=== PATIENT | male | born 1950 | race Caucasian/White ===

== ENCOUNTER 2016-05-31 16:19 | Emergency (ER) | payer BC, OTHER ==
[~2016-05-31] VITALS: Ht 170.2 cm; Wt 128.1 kg
[~2016-05-31 16:19] MED LIST: ATOR-22 PO; B-CO1CAP3 PO; BIMA0.01 OPB; CITA20TA4 PO; DOXY50CA26 PO; DTRSR4 PO; FLUT0.15 NAE; TADA5TAB11 PO; TAMS0.4C59 PO; TURM1CAP4 PO; UBIQ1CAP8 PO
[2016-05-31 16:35] VITALS: Ht 170.2 cm; Wt 128.1 kg
[2016-05-31 17:48] LABS: BASO % 0.4 %; BASO ABS # 0.03 K/uL (0-0.2); COMPLETE YES; EOS % 3.2 %; HEMATOCRIT 42.2 % (42-52); IG% 0.1 %; LYMPH ABS # 2.25 K/uL (1.2-3.4); MEAN CELL VOLUME 87.6 fL (80-100); MEAN CORPUSCULAR HGB CONC 36.5 g/dl (32-36); MEAN PLATELET VOLUME 9.5 fL (7.4-10.4); MONO % 12.5 %; NEUT % 52.8 %; PLATELET COUNT 220 K/uL (130-400); RED BLOOD COUNT 4.82 M/uL (4.7-6.1); WHITE BLOOD COUNT 7.26 K/uL (4.8-10.8)
[2016-05-31] MEDS ORDERED: MoRPHine SULFATE 4 MG/ML 1 ML CARP\\VIAL IV STA (17:50)
[2016-05-31] MEDS ORDERED: ONDANSETRON INJ 2 MG/ML 2 ML VIAL IV STA (17:50)
[2016-05-31 18:03] LABS: BUN/CREATININE RATIO 23.3 (10-20); CALCIUM 8.5 mg/dl (8.5-10.1); POTASSIUM 3.7 mmol/L (3.5-5.1)
[2016-05-31] MEDS ORDERED: MONT1TAB3 PO (18:46)
--- NOTE | 2016-05-31 19:07 | DIAGNOSTIC IMAGING REPORT ---
CT OF THE HEAD WITHOUT CONTRAST CLINICAL HISTORY: Sharp headache behind right. COMPARISON STUDY: Head CT September 11, 2015. CT DOSE: 1555.67 mGy.cm TECHNIQUE: Helical axial images of the head were obtained without IV contrast. Automated exposure control was utilized for the study. FINDINGS: The orbits CT will be reported separately. No acute intracranial hemorrhage, midline shift or mass effect is present. Ventricular system is stable. Basilar cisterns are patent. There are no extra-axial collections. Adame-white differentiation is maintained. There are no findings to suggest acute dural sinus thrombosis or acute territorial infarct. Visualized portions of the sinuses and mastoid air cells are clear. There are no significant calvarial abnormalities IMPRESSION: No acute intracranial findings. Electronically signed by: Narciso Arnold M.D. 05/31/2016 7:05 PM Dictated Date/Time: 05/31/2016 7:02 PM
--- NOTE | 2016-05-31 19:11 | DIAGNOSTIC IMAGING REPORT ---
CT OF THE ORBITS WITHOUT CONTRAST CLINICAL HISTORY: Right eye pain. TECHNIQUE: Axial images of the orbits were obtained without IV contrast. Coronal reformats were viewed. COMPARISON STUDY: Head CT September 11, 2015. FINDINGS: Mastoid air cells are clear. Globes are intact. There is no orbital mass or hematoma. Evaluation is suboptimal on this unenhanced exam. Deformity of the nasal bones is unchanged since head CT of September 11, 2015. This is chronic. No acute fracture is identified. Orbital floors are intact. There is mild mucosal thickening of the sinuses. There is no evidence for acute sinusitis. No fluid collection is identified. There is no significant infiltration to suggest cellulitis by CT. The superior ophthalmic veins are not dilated. IMPRESSION: 1. No significant abnormality of the orbits identified. 2. Suboptimal evaluation of the orbits given the lack of IV contrast. Electronically signed by: Narciso Arnold M.D. 05/31/2016 7:10 PM Dictated Date/Time: 05/31/2016 7:06 PM
[2016-05-31] MEDS ORDERED: ACETAMINOPHEN 325 MG TAB PO STA (19:30)
[2016-05-31] MEDS ORDERED: PROPARACAINE HCL 0.5% OP SOLN 15 ML BTL OP STA (19:30)
[2016-05-31] MEDS ORDERED: OXYC1TAB3 PO (20:17)
[2016-05-31 20:36] VITALS: BP 132/79; PULSE 57; TEMP 37; O2SAT 95
--- NOTE | 2016-06-02 17:15 | EMERGENCY ROOM VISIT NOTE ---
History Report prepared by Randal: Winifred Whittington Under the Supervision of: Dr. Art Cohen M.D. First contact with patient: 17:12 Chief Complaint: HEADACHE Stated Complaint: SHARP HEADACHE BEHIND RT EYE, EYE PAIN WHEN MOVING History of Present Illness The patient is a 65 year old male who presents to the Emergency Room with complaints of persistent headache starting 3 days [employer]. The patient states that his headache is frontal but that most of his pain is surrounding his eyes. The patient states that there is an increase of pain from a rating of 5/10 to an 8/ 10 when he moves his eye to the left. He states the pain is increased in his headache and causing eye pain. The patient states that his states that his eyelid look swollen compared to baseline. The patient states that when driving home from [place] his headache worsened and he did not know if the sunlight caused his headache to be worse. The patient states that when sitting in the dark with his eyes closed his headache did improve. He states that he takes eye drops prescribed by his loss prevention and safety manager for increased eye pressure. The patient denies taking any blood thinners. The patient denies any fevers, chills, numbness, weakness, blurry vision, SOB, chest pain, or abdominal pain. The patient states he has had a history of migraine in past but states that today his headache does not feel similar. 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 Patient denies blurry vision Review of Systems See HPI for pertinent positives & negatives. A total of 10 systems reviewed and were otherwise negative. Past Medical & Surgical Medical Problems: (1) Allergic rhinitis (2) Anxiety (3) BPH (benign prostatic hypertrophy) (4) Depression (5) Gout (6) H/O migraine (7) HYPERLIPIDEMIA NEC/NOS (8) Obstructive sleep apnea on CPAP (9) Pre-syncope (10) Ureteral calculus, right Surgical Problems: (1) H/O colonoscopy (2) H/O umbilical hernia repair (3) S/p cystourethroscopy (4) S/p repair of ankle fracture (5) S/P repair of hydrocele (6) S/P UPPP (uvulopalatopharyngoplasty) Old medical records were reviewed. Nurse's notes were reviewed and I agree with. Does have a history of increased ocular pressure Family History Diabetes mellitus FH: heart disease FHx: cancer Hypertension Social History Smoking Status: Former Smoker Alcohol Use: occasionally Drug Use: none Marital Status: Occupation Status: employed Current/Historical Medications Scheduled Atorvastatin (Lipitor), 20 MG PO HS B-Complex Vitamins (B Complex), 1 CAP PO DAILY Bimatoprost (Lumigan), 1 DROP OPB HS Citalopram Hydrobromide (Citalopram Hydrobromide), 20 MG PO DAILY Fluticasone Propionate (Nasal) (Flonase Allergy Relief), 2 SPRAYS LUL DAILY Montelukast Sodium (Singulair), 10 MG PO QPM Tadalafil (Cialis), 5 MG PO UD Tamsulosin Hcl (Flomax), 0.4 MG PO DAILY Turmeric (Curcuma Longa) (Turmeric), Unknown Dose PO DAILY Ubiquinol (Ubiquinol), Unknown Dose PO DAILY Scheduled PRN Oxycodone Immediate Rel Tab (Roxicodone Ir), 1 TAB PO Q4H PRN for Severe Pain Allergies Coded Allergies: Aspirin (Verified Allergy, Unknown, FACIAL SWELLING, 05/31/16) Cat Dander (Verified Allergy, Unknown, ., 05/31/16) Uncoded Allergies: HAY FEVER (Allergy, Unknown, ., 08/03/13) Physical Exam Vital Signs Date Time Temp Pulse Resp B/P Pulse Ox O2 Delivery O2 Flow Rate FiO2 05/31/16 20:36 37.0 57 16 132/79 95 05/31/16 20:35 57 16 132/79 95 Room Air 05/31/16 18:50 56 16 130/77 95 Room Air 05/31/16 16:35 37.0 61 18 120/69 94 Room Air Physical Exam General: Non ill appearing older male in no acute distress, breathing comfortably on room air. Normal speech HEENT: Normal cephalic atraumatic. Right eyes appear symmetrical with the left, with minimal sclera injection and redness on the right, no proptosis. Possible mild swelling of the upper lid on the right but no redness or tenderness. Pupils are equal round and reactive to light. Extraocular movements are intact. Oropharynx is pink with moist mucous membranes. No swelling of the mouth lips or tongue. Neck: Supple with a midline trachea. No meningeal signs or stiffness, no JVD or bruits. No Stridor. Chest: Clear to auscultation bilaterally. No wheezes or rhonchi. No increased work of breathing. Heart: regular rate and rhythm. Abdomen: Soft nontender, nondistended without rebound guarding or rigidity. Extremities: No cyanosis clubbing or edema. No calf tenderness or assymetry Spine/Back. Non tender to palpation. No CVA tenderness Skin: Good turgor without rashes. Neurologic exam: Cranial nerves two through 12 are intact. Motor and sensation are intact and symmetrical throughout. No tremor. Medical Decision & Procedures ER Provider Diagnostic Interpretation: CT results as stated below per my review and radiologist interpretation: CT OF THE HEAD WITHOUT CONTRAST CLINICAL HISTORY: Sharp headache behind right. COMPARISON STUDY: Head CT September 11, 2015. CT DOSE: 1555.67 mGy.cm TECHNIQUE: Helical axial images of the head were obtained without IV contrast. Automated exposure control was utilized for the study. FINDINGS: The orbits CT will be reported separately. No acute intracranial hemorrhage, midline shift or mass effect is present. Ventricular system is stable. Basilar cisterns are patent. There are no extra-axial collections. Adame-white differentiation is maintained. There are no findings to suggest acute dural sinus thrombosis or acute territorial infarct. Visualized portions of the sinuses and mastoid air cells are clear. There are no significant calvarial abnormalities IMPRESSION: No acute intracranial findings. Electronically signed by: Narciso Arnold M.D. 05/31/2016 7:05 PM Dictated Date/Time: 05/31/2016 7:[address] OF THE ORBITS WITHOUT CONTRAST CLINICAL HISTORY: Right eye pain. TECHNIQUE: Axial images of the orbits were obtained without IV contrast. Coronal reformats were viewed. COMPARISON STUDY: Head CT September 11, 2015. FINDINGS: Mastoid air cells are clear. Globes are intact. There is no orbital mass or hematoma. Evaluation is suboptimal on this unenhanced exam. Deformity of the nasal bones is unchanged since head CT of September 11, 2015. This is chronic. No acute fracture is identified. Orbital floors are intact. There is mild mucosal thickening of the sinuses. There is no evidence for acute sinusitis. No fluid collection is identified. There is no significant infiltration to suggest cellulitis by CT. The superior ophthalmic veins are not dilated. IMPRESSION: 1. No significant abnormality of the orbits identified. 2. Suboptimal evaluation of the orbits given the lack of IV contrast. Electronically signed by: Narciso Arnold M.D. 05/31/2016 7:10 PM Dictated Date/Time: 05/31/2016 7:06 PM Laboratory Results 05/31/16 17:40 Red Blood Count 4.82, Mean Corpuscular Volume 87.6, Mean Corpuscular Hemoglobin 32.0, Mean Corpuscular Hemoglobin Concent 36.5, Mean Platelet Volume 9.5, Neutrophils (%) (Auto) 52.8, Lymphocytes (%) (Auto) 31.0, Monocytes (%) (Auto) 12.5, Eosinophils (%) (Auto) 3.2, Basophils (%) (Auto) 0.4, Neutrophils # (Auto ) 3.83, Lymphocytes # (Auto) 2.25, Monocytes # (Auto) 0.91, Eosinophils # (Auto ) 0.23, Basophils # (Auto) 0.03 05/31/16 17:40 Test 05/31/16 17:40 White Blood Count 7.26 K/uL (4.8-10.8) Red Blood Count 4.82 M/uL (4.7-6.1) Hemoglobin 15.4 g/dL (14.0-18.0) Hematocrit 42.2 % (42-52) Mean Corpuscular Volume 87.6 fL (80-100) Mean Corpuscular Hemoglobin 32.0 pg (25-34) Mean Corpuscular Hemoglobin Concent 36.5 g/dl (32-36) Platelet Count 220 K/uL (130-400) Mean Platelet Volume 9.5 fL (7.4-10.4) Neutrophils (%) (Auto) 52.8 % Lymphocytes (%) (Auto) 31.0 % Monocytes (%) (Auto) 12.5 % Eosinophils (%) (Auto) 3.2 % Basophils (%) (Auto) 0.4 % Neutrophils # (Auto) 3.83 K/uL (1.4-6.5) Lymphocytes # (Auto) 2.25 K/uL (1.2-3.4) Monocytes # (Auto) 0.91 K/uL (0.11-0.59) Eosinophils # (Auto) 0.23 K/uL (0-0.5) Basophils # (Auto) 0.03 K/uL (0-0.2) RDW Standard Deviation 41.8 fL (36.4-46.3) RDW Coefficient of Variation 13.1 % (11.5-14.5) Immature Granulocyte % (Auto) 0.1 % Immature Granulocyte # (Auto) 0.01 K/uL (0.00-0.02) Erythrocyte Sedimentation Rate 9 mm/hr (0-14) Anion Gap 7.0 mmol/L (3-11) Est Creatinine Clear Calc Drug Dose 96.0 ml/min Estimated GFR () 91.8 Estimated GFR (Non- 79.2 BUN/Creatinine Ratio 23.3 (10-20) Calcium Level 8.5 mg/dl (8.5-10.1) Laboratory studies as stated above per my review. Medications Administered Medications (Trade) Dose Ordered Sig/Jose Route Start Time Stop Time Status Last Admin Dose Admin Morphine Sulfate (MoRPHine SULFATE INJ) 4 mg NOW STAT IV 05/31/16 17:50 05/31/16 17:51 DC 05/31/16 18:00 4 MG Ondansetron HCl (Zofran Inj) 4 mg NOW STAT IV 05/31/16 17:50 05/31/16 17:51 DC 05/31/16 17:59 4 MG Acetaminophen (Tylenol Tab) 650 mg NOW STAT PO 05/31/16 19:30 05/31/16 19:32 DC 05/31/16 19:44 650 MG Procedure Slit Lamp Examination Indication:right eye pain The right eye was prepped with topical proparacaine. Slit lamp examination was performed in the standard fashion. Cornea appeared without lesions. Anterior chamber no hyphema. Scleral injection was present on right mostly laterally. No discharge present. Fluorescein examination performed and revealed no lesions. No foreign bodies noted. Negative Noemí sign. The patient tolerated the procedure well without complication. ED Course 1713: Past medical records reviewed. The patient was evaluated in room A9B, and a complete history and physical examination were performed. 1747: I reevaluated the patient and he was complaining of more pain. 1749: Ordered Zofran Inj 4 mg IV, Morphine sulfate 4 mg IV. 1814: I examined the patient's eyes using the puff tonometer and he's results were an average of 17 in the right eye and 15 in the left. 1928: I reevaluated the patient and he states he is feeling better with a minimal headache. 1929: Ordered Proparacaine HCl 2 drop OP, Tylenol Tab 650 mg PO. 1953: I performed slit eye exam on the patient. 2007: I discussed the case with Dr. Lisa [employer]. He said the patient can be seen in the office tomorrow. 2022: Upon reevaluation, the patient is resting comfortably. I discussed the results and treatment plan with him. He verbalized agreement of the treatment plan. The patient was discharged home. Medical Decision Differentials include, but are not limited to; glaucoma, intracanal process, inflammatory process, electrolyte or metabolic abnormality. This patient comes in as described above. He has sharp pain behind his right eye. He does have a history of what sounds a mild glaucoma. On exam, his eyes look well with exception of some mild redness of the right sclera and possible mild right eyelid swelling. He has a normal neurologic exam and is nontoxic and [id number] and he has no meningeal signs or stiffness. He has nothing to suggest infection or sepsis. IV access was established and multiple blood tests was obtained as well as CAT scan imaging. The CAT scan of his head and orbit are unremarkable. He has no white count or fever to suggest infection. A sedimentation rate is not elevated and therefore temporal arteritis is extremely unlikely. He was given IV morphine and IV Zofran is feeling much better. He also received by mouth Tylenol. I did check is ocular pressures 3 different times using our puff tonometer. They were not elevated and are 17 and 15. I looked his eye with the slit lamp. There are no anterior chamber abnormalities. There is no corneal abrasions or lesions or hyphema. His visual acuity is not abnormal. He has normal neurologic exam and his symptoms do not suggest an acute intracranial process, stroke, or aneurysm at this point .He is feeling better and would like to go home. I did discuss case Dr. Pires, the on-call loss prevention and safety manager. He said they can see him in the office tomorrow. It is possible this could be a scleritis or episcleritis. He did not have any further recommendations except for pain management at this point. The patient was given a home pack of OxyIR as well as prescription. He was warned that it could make him drowsy and do not take before drinking, driving, working. He is to return if: increasing pain, worsening headaches, change in vision, numbness of his, any new problems or concerns. Patient and his were happy with the plan and he was discharged to home. Consults Time Called: 2004 Consulting Physician: Dr. Lisa loss prevention and safety manager Returned Call: 2007 I discussed the case with Dr. Lisa [employer]. He said the patient can be seen in the office tomorrow. Impression Primary Impression: Pain, eye, right Additional Impression: Headache Scribe Attestation The scribe's documentation has been prepared under my direction and personally reviewed by me in its entirety. I confirm that the note above accurately reflects all work, treatment, procedures, and medical decision making performed by me. Departure Information Dispostion Home / Self-Care Prescriptions Oxycodone Immediate Rel Tab (ROXICODONE IR) 5 Mg Tab 1 TAB PO Q4H Y for Severe Pain, #14 TAB Prov: Art Cohen M.D. 05/31/16 Referrals Emerson Menendez MD (PCP) Forms HOME CARE DOCUMENTATION FORM, IMPORTANT VISIT INFORMATION Patient Instructions My [facility] Additional Instructions Rest. Drink plenty of fluids. For more severe pain, may use OxyIR 5 mg, one to 2 pills every 4-6 hours as needed. Follow-up with Dr. Mata tomorrow, they can check in the office Return if: Increasing pain, worsening of symptoms, fever or chills, any new problems or concerns Problem Qualifiers
== END 2016-05-31 20:37 | disposition home or self-care (01) ==
LOC: C.EDB 16:20 → C.EDA 20:37
DX: R51 Headache (principal); H57.11 Ocular pain, right eye; F41.9 Anxiety disorder, unspecified; N40.0 Benign prostatic hyperplasia without lower urinary tract symptoms; E78.5 Hyperlipidemia, unspecified; G47.33 Obstructive sleep apnea (adult) (pediatric); Z87.891 Personal history of nicotine dependence

== ENCOUNTER → 2016-12-31 | Outpatient (CLI) | payer BC ==
[~2016-12-31] MED LIST changes: -DOXY50CA26 PO; -DTRSR4 PO; +MONT1TAB3 PO; +OPTIRAY 320 IV PRN
--- NOTE | 2016-12-31 18:03 | DIAGNOSTIC IMAGING REPORT ---
ABDOMEN AND PELVIS CT WITH IV AND ORAL CONTRAST CT DOSE: 973.81 mGycm HISTORY: D72.829 hx diverticulitis, leukocytosis , flank pain TECHNIQUE: Multiaxial CT images of the abdomen and pelvis were performed following the use of intravenous and oral contrast. A dose lowering technique was utilized adhering to the principles of ALARA. COMPARISON STUDY: Abdomen and pelvis CT 8 07/07/2013. FINDINGS: Mild dependent changes/scarring at the lung bases. No fractures within the visualized osseous structures. Moderate degenerative disease within the lumbar spine. No hepatic or splenic masses. The adrenal glands, gallbladder, and pancreas are unremarkable. No renal or ureteral stones. No hydronephrosis. No retroperitoneal lymphadenopathy. Normal bladder. The prostate remains mildly enlarged. Stable asymmetric enlargement of the left seminal vesicle. Colonic diverticulosis. No bowel wall thickening or obstruction. Normal appendix. IMPRESSION: 1. No bowel wall thickening or obstruction. 2. Normal appendix. 3. No renal stones. No hydronephrosis. Electronically signed by: Mitch Armstrong M.D. 12/31/2016 6:01 PM Dictated Date/Time: 12/31/2016 5:54 PM
== END | disposition home or self-care (01) ==
LOC: C.CTS 15:05
PROVIDERS: ATTEND Nurse Practitioner
DX: D72.829 Elevated white blood cell count, unspecified (principal)

== ENCOUNTER 2021-12-27 10:39 | Observation (INO) ==
--- NOTE | 2021-12-27 11:13 | XRay Report ---
XR chest 1V portable HISTORY: 71 years-old Male Chest Pain acute chest pain COMPARISON: Chest radiograph 09/11/2015 TECHNIQUE: Portable AP view of the chest FINDINGS: Cardiac mediastinal and hilar silhouettes are unchanged. No pneumothorax, pleural effusion, airspace consolidation or overt pulmonary edema. Mild subsegmental bibasilar atelectasis. Degenerative changes of the shoulders and spine. Mild mid thoracic dextroscoliosis. IMPRESSION: No acute process. ACT 112: Negative or not required by law. The above report was generated using voice recognition software. It may contain grammatical, syntax o r spelling errors. Electronically signed by: Aubrey Tucker M.D. 12/27/2021 11:12 AM
[2021-12-27 11:15] LABS: Basophils # (auto) 0.05 K/uL (0-0.2); Basophils % (auto) 0.6 %; Eosinophils # (auto) 0.17 K/uL (0-0.50); Eosinophils % (auto) 1.9 %; Hematocrit (blood only) 44.9 % (40.1-51.0); Hemoglobin 15.9 g/dl (14.0-18.0); Immature Granulocytes # (auto) 0.03 K/uL (0.00-0.02); Immature Granulocytes % (auto) 0.3 %; Lymphocytes # (auto) 2.38 K/uL (1.2-3.4); Lymphocytes % (auto) 26.2 %; Mean Corpuscular Hemoglobin 32.6 pg (25.0-34.0); Mean Corpuscular Hgb Conc 35.4 g/dL (32.0-36.0); Mean Platelet Volume 9.8 fL (9.4-12.4); Monocytes # (auto) 0.73 K/uL (0.24-0.82); Neutrophils # (auto) 5.73 K/uL (1.4-6.5); Platelet Count 233 K/uL (130-400); RDW Coefficient of Variation 13.6 % (11.5-14.5); RDW Standard Deviation 46.2 fL (36.4-46.3); Red Blood Count 4.88 M/uL (4.63-6.08); White Blood Count 9.09 K/ul (4.8-10.8)
[2021-12-27 11:34] LABS: D Dimer 330 ug/L FEU (0-500); Partial Thromboplastin Ratio 0.9; Partial Thromboplastin Time 25.9 Seconds (21.0-31.0); Prothrombin Time 10.8 Seconds (9.0-12.0)
--- NOTE | 2021-12-27 11:40 | Emergency Department Note ---
History of Present Illness General Chief Complaint: Chest Pain Stated Complaint: L SIDE RIB CAGE PAIN/CHEST PAIN Time Seen by Provider: 12/27/21 10:51 History of Present Illness Provider Complaint: chest pain Onset (ago): day(s) 2 Duration: intermittent and now resolved Onset: during exertion Pain Location: substernal and left chest Pain Radiation: none Severity: moderate Maximum Pain Intensity: 7 Current Pain Intensity: 7 Quality: + aching, + heaviness and + dull Relieved By: + rest Exacerbated By: + exertion and + inspiration Context: no recent illness, no recent surgery, no recent travel, no trauma/inju ry, no new medications or no history of DVT/PE Associated symptoms: no vomiting, no dyspnea, no syncope, no palpitations, no cough or no leg swelling Home Medications Medication Instructions Recorded Confirmed Type allopurinol 300 mg tablet 300 mg PO HS 12/20/20 12/27/21 History atorvastatin 40 mg tablet 40 mg PO PM 12/20/20 12/27/21 History losartan 25 mg tablet 25 mg PO HS 12/20/20 12/27/21 History metformin 500 mg tablet,extended 500 mg PO HS 12/20/20 12/27/21 History release 24 hr tamsulosin 0.4 mg capsule (Flomax) 0.4 mg PO HS 12/20/20 12/27/21 History travoprost 0.004 % eye drops 1 drp OPB HS 12/20/20 12/27/21 History (Travatan Z) turmeric 400 mg capsule 400 mg PO HS 12/20/20 12/27/21 History lifitegrast 5 % eye drops in a 1 drp OPB BID 12/27/20 12/27/21 History dropperette (Xiidra) multivitamin (Daily Multi-Vitamin 1 tab PO QAM 12/27/20 12/27/21 History tablet) finasteride 5 mg tablet 5 mg PO HS 12/27/21 12/27/21 History levothyroxine 50 mcg tablet 50 mcg PO DAILY 12/27/21 12/27/21 History vitamin B complex 1 tab PO DAILY 12/27/21 12/27/21 History Allergies Allergy/AdvReac Type Severity Reaction Status Date / Time aspirin Allergy Severe Facial Verified 12/27/21 11:26 swelling cat dander Allergy Intermediate Eye itching Verified 12/27/21 11:26 HAY FEVER Allergy Intermediate Sneezing Uncoded 12/27/21 11:26 Past Med/Surg History Medical History BPH (benign prostatic hypertrophy) CAD (coronary artery disease) Coronary calcifications noted on CT scan- evaluated by cardio- negative stress test- statin increased- started on Losartan for risk factor modification DDD (degenerative disc disease) Depression Diabetes mellitus, type 2 Dyslipidemia Gout History of COVID-19 Dx 01/2020 > resolved Sleep apnea CPAP SVT (supraventricular tachycardia) Single episode 06/2020 on stress test > converted to SR on own post stress (cardio aware) Surgical History H/O colonoscopy H/O umbilical hernia repair History of ankle surgery S/P repair of hydrocele S/P UPPP (uvulopalatopharyngoplasty) Social History Smoking Status: Former smoker Tobacco Type: Cigarettes Second Hand Exposure: No; Hx Alcohol Use: Yes Hx Substance Use: No Preferred Language: Croatian Communication Ability: Effective 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 Beliefs That Will Affect Care: None marital status: Current Living Situation: Spouse current occupational status: employed Feels Safe at Home: Yes Review of Systems A total of 10 systems reviewed and were otherwise negative Physical Exam Vital Signs Vital Signs - 24 hr 12/27/21 10:45 12/27/21 11:01 12/27/21 10:53 Temperature 36.3 C L Temperature Source Temporal Artery Scan Pulse Rate 79 64 Pulse Rate [Apical] 67 Pulse Rate from SpO2 Sensor Respiratory Rate 20 20 23 Respiratory Effort / Characteristics Non-Labored Spontaneous Non-Labored Spontaneous Respiratory Depth Normal Normal Respiratory Pattern Regular Regular Blood Pressure 111/70 Blood Pressure [Right Arm] 135/79 Blood Pressure Mean 83 Blood Pressure Mean [Right Arm] 97 Blood Pressure Position [Right Arm] Sitting Pulse Oximetry 95 96 Oxygen Delivery Method Room Air Room Air Sepsis Recent Fever Within 48 Hours No Sepsis New/Unexplained Change in Mental Status No Sepsis Action Taken by Nursing No Action Required 12/27/21 10:59 12/27/21 10:59 12/27/21 11:00 Temperature Temperature Source Pulse Rate 66 61 Pulse Rate [Apical] Pulse Rate from SpO2 Sensor 75 64 Respiratory Rate 24 19 Respiratory Effort / Characteristics Respiratory Depth Respiratory Pattern Blood Pressure 135/79 Blood Pressure [Right Arm] Blood Pressure Mean 97 Blood Pressure Mean [Right Arm] Blood Pressure Position [Right Arm] Pulse Oximetry 91 95 Oxygen Delivery Method Sepsis Recent Fever Within 48 Hours Sepsis New/Unexplained Change in Mental Status Sepsis Action Taken by Nursing 12/27/21 11:10 12/27/21 11:20 12/27/21 11:30 Temperature Temperature Source Pulse Rate 66 66 66 Pulse Rate [Apical] Pulse Rate from SpO2 Sensor 66 66 65 Respiratory Rate 22 20 Respiratory Effort / Characteristics Respiratory Depth Respiratory Pattern Blood Pressure Blood Pressure [Right Arm] Blood Pressure Mean Blood Pressure Mean [Right Arm] Blood Pressure Position [Right Arm] Pulse Oximetry 95 95 95 Oxygen Delivery Method Sepsis Recent Fever Within 48 Hours Sepsis New/Unexplained Change in Mental Status Sepsis Action Taken by Nursing 12/27/21 11:40 12/27/21 11:50 12/27/21 12:00 Temperature Temperature Source Pulse Rate 68 67 70 Pulse Rate [Apical] Pulse Rate from SpO2 Sensor 70 68 71 Respiratory Rate 19 23 20 Respiratory Effort / Characteristics Respiratory Depth Respiratory Pattern Blood Pressure Blood Pressure [Right Arm] Blood Pressure Mean Blood Pressure Mean [Right Arm] Blood Pressure Position [Right Arm] Pulse Oximetry 95 95 96 Oxygen Delivery Method Sepsis Recent Fever Within 48 Hours Sepsis New/Unexplained Change in Mental Status Sepsis Action Taken by Nursing 12/27/21 12:10 12/27/21 12:20 12/27/21 12:30 Temperature Temperature Source Pulse Rate 66 66 65 Pulse Rate [Apical] Pulse Rate from SpO2 Sensor 63 65 64 Respiratory Rate 20 22 18 Respiratory Effort / Characteristics Respiratory Depth Respiratory Pattern Blood Pressure Blood Pressure [Right Arm] Blood Pressure Mean Blood Pressure Mean [Right Arm] Blood Pressure Position [Right Arm] Pulse Oximetry 95 96 95 Oxygen Delivery Method Sepsis Recent Fever Within 48 Hours Sepsis New/Unexplained Change in Mental Status Sepsis Action Taken by Nursing 12/27/21 12:40 12/27/21 12:50 12/27/21 13:00 Temperature Temperature Source Pulse Rate 65 69 59 L Pulse Rate [Apical] Pulse Rate from SpO2 Sensor 63 68 61 Respiratory Rate 23 18 Respiratory Effort / Characteristics Respiratory Depth Respiratory Pattern Blood Pressure Blood Pressure [Right Arm] Blood Pressure Mean Blood Pressure Mean [Right Arm] Blood Pressure Position [Right Arm] Pulse Oximetry 96 96 96 Oxygen Delivery Method Sepsis Recent Fever Within 48 Hours Sepsis New/Unexplained Change in Mental Status Sepsis Action Taken by Nursing 12/27/21 13:10 Temperature Temperature Source Pulse Rate 61 Pulse Rate [Apical] Pulse Rate from SpO2 Sensor 62 Respiratory Rate 20 Respiratory Effort / Characteristics Respiratory Depth Respiratory Pattern Blood Pressure Blood Pressure [Right Arm] Blood Pressure Mean Blood Pressure Mean [Right Arm] Blood Pressure Position [Right Arm] Pulse Oximetry 97 Oxygen Delivery Method Sepsis Recent Fever Within 48 Hours Sepsis New/Unexplained Change in Mental Status Sepsis Action Taken by Nursing Physical Exam GENERAL: He is oriented to person, place, and time. He appears well-developed and well-nourished. He does not appear distressed. HENT: Exam performed. - Head: Normocephalic and atraumatic. - Right Ear: External ear normal. No mastoid tenderness. - Left Ear: External ear normal. No mastoid tenderness. - Mouth/Throat: The oropharynx is clear and moist. No trismus in the jaw. No dental abscesses or uvula swelling. No oropharyngeal exudate or tonsillar abscesses. EYES: Conjunctivae and EOM are normal. Pupils are equal, round, and reactive to light. Right eye exhibits no discharge. Left eye exhibits no discharge. No scleral icterus. NECK: Normal range of motion. Neck supple. No JVD present. No spinous process t enderness present. No carotid bruit present. No rigidity. No tracheal deviation and normal range of motion present. No Brudzinski's sign and no Kernig's sign noted. CV: Normal rate, regular rhythm, normal heart sounds and intact distal pulses. There is no peripheral edema. Palpable radial pulses bue. PULM/CHEST: Effort normal and breath sounds normal. No respiratory distress. No stridor. He has no wheezes. He has no rales. - Chest Wall: He exhibits no tenderness. ABD: The abdomen is soft. Bowel sounds are normal. He has no distension. No mass is present. There is no tenderness. There is no rebound, no guarding, no Velásquez's sign and no tenderness at McBurney's point. Rovsig negative. MUSC/SKEL: Normal range of motion. There is no peripheral edema, tenderness or deformity. LYMPH: No cervical adenopathy. NEURO: He is alert and oriented to person, place, and time. He has normal strength. No cranial nerve deficit or sensory deficit. Coordination and gait normal. GCS eye subscore is 4. GCS verbal subscore is 5. GCS motor subscore is 6. Cerebellar tests wnl. SKIN: Skin is warm and dry. He is not diaphoretic. PSYCH: He has a normal mood and affect. Behavior is normal. Judgment and thought content normal. Course Course 1051: The patient was evaluated in room C1. A complete history and physical exam was performed Cardiac monitoring: An order was placed for continuous cardiac monitoring. The monitor shows a rate of 60 with sinus rhythm 1230: Vital signs stable. Labs and imaging within normal limits. Patient has a moderate to high heart score. [facility] Medical Decision Making Laboratory Data Result diagrams: 12/27/21 10:59 12/27/21 10:59 Labs: Lab Results 12/27/21 12/27/21 12/27/21 Range/Units 10:59 10:59 10:59 WBC 9.09 (4.8-10.8) K/ul RBC 4.88 (4.63-6.08) M/uL Hgb 15.9 (14.0-18.0) g/dl Hct 44.9 (40.1-51.0) % MCV 92.0 (80.0-100.0) fL MCH 32.6 (25.0-34.0) pg MCHC 35.4 (32.0-36.0) g/dL RDW Std Deviation 46.2 (36.4-46.3) fL RDW Coeff of Dk 13.6 (11.5-14.5) % Plt Count 233 (130-400) K/uL MPV 9.8 (9.4-12.4) fL Immature Gran % (Auto) 0.3 % Neut % (Auto) 63.0 % Lymph % (Auto) 26.2 % [place] % (Auto) 8.0 % Eos % (Auto) 1.9 % Baso % (Auto) 0.6 % Neut # (Auto) 5.73 (1.4-6.5) K/uL Lymph # (Auto) 2.38 (1.2-3.4) K/uL [place] # (Auto) 0.73 (0.24-0.82) K/uL Eos # (Auto) 0.17 (0-0.50) K/uL Baso # (Auto) 0.05 (0-0.2) K/uL Immature Gran # (Auto) 0.03 H (0.00-0.02) K/uL PT 10.8 (9.0-12.0) Seconds INR 1.0 (0.9-1.1) APTT 25.9 (21.0-31.0) Seconds PTT Ratio 0.9 D-Dimer 330 (0-500) ug/L FEU Sodium 138 (136-145) mmol/L Potassium 4.2 (3.5-5.1) mmol/L Chloride 105 (98-107) mmol/L Carbon Dioxide 25 (21-32) mmol/L Anion Gap 8 (3-11) BUN 20 (6-23) mg/dl Creatinine 1.08 (0.6-1.4) mg/dl Est Cr Clr Drug Dosing 79.6 ml/min Est GFR ( Amer) 80.2 ml/min Est GFR (Non-Af Amer) 69.2 ml/min BUN/Creatinine Ratio 18.5 (10-20) Glucose 143 H (70-99(Fasting)) mg/dl Calcium 9.1 (8.5-10.1) mg/dl Troponin I High Sens 5.1 (0-20) pg/ml Lipase 42 (11-82) U/L SARS-CoV-2, RNA, NAAT (NEGATIVE) 12/27/21 Range/Units 12:33 WBC (4.8-10.8) K/ul RBC (4.63-6.08) M/uL Hgb (14.0-18.0) g/dl Hct (40.1-51.0) % MCV (80.0-100.0) fL MCH (25.0-34.0) pg MCHC (32.0-36.0) g/dL RDW Std Deviation (36.4-46.3) fL RDW Coeff of Dk (11.5-14.5) % Plt Count (130-400) K/uL MPV (9.4-12.4) fL Immature Gran % (Auto) % Neut % (Auto) % Lymph % (Auto) % [place] % (Auto) % Eos % (Auto) % Baso % (Auto) % Neut # (Auto) (1.4-6.5) K/uL Lymph # (Auto) (1.2-3.4) K/uL [place] # (Auto) (0.24-0.82) K/uL Eos # (Auto) (0-0.50) K/uL Baso # (Auto) (0-0.2) K/uL Immature Gran # (Auto) (0.00-0.02) K/uL PT (9.0-12.0) Seconds INR (0.9-1.1) APTT (21.0-31.0) Seconds PTT Ratio D-Dimer (0-500) ug/L FEU Sodium (136-145) mmol/L Potassium (3.5-5.1) mmol/L Chloride (98-107) mmol/L Carbon Dioxide (21-32) mmol/L Anion Gap (3-11) BUN (6-23) mg/dl Creatinine (0.6-1.4) mg/dl Est Cr Clr Drug Dosing ml/min Est GFR ( Amer) ml/min Est GFR (Non-Af Amer) ml/min BUN/Creatinine Ratio (10-20) Glucose (70-99(Fasting)) mg/dl Calcium (8.5-10.1) mg/dl Troponin I High Sens (0-20) pg/ml Lipase (11-82) U/L SARS-CoV-2, RNA, NAAT NEGATIVE (NEGATIVE) Imaging Data Chest x-ray: Radiologist's impression: Chest X-Ray 12/27/21 10:51 XR chest 1V portable HISTORY: 71 years-old Male Chest Pain acute chest pain COMPARISON: Chest radiograph 09/11/2015 TECHNIQUE: Portable AP view of the chest FINDINGS: Cardiac mediastinal and hilar silhouettes are unchanged. No pneumothorax, pleural effusion, airspace consolidation or overt pulmonary edema. Mild subsegmental bibasilar atelectasis. Degenerative changes of the shoulders and spine. Mild mid thoracic dextroscoliosis. IMPRESSION: No acute process. ACT 112: Negative or not required by law. The above report was generated using voice recognition software. It may contain grammatical, syntax or spelling errors. Electronically signed by: Aubrey Tucker M.D. 12/27/2021 11:12 AM ECG Data Indication: chest pain Rate (beats per minute): 61 Rhythm: normal sinus Findings: no ST depression, no ST elevation or no prolonged QT MDM Narrative Vital signs stable. Labs and imaging within normal limits. Patient has a moderate to high heart score. Patient will be admitted to the [facility] hospitalist team for rule out ACS Impression & Plan Chest pain Discharge Plan Visit Data Chief Complaint: Chest Pain Stated Complaint: L SIDE RIB CAGE PAIN/CHEST PAIN ED Provider: Devon Rg Discharge Problem: Chest pain Patient Disposition: Being Evaluated by Hospitalist Forms Stand Alone Forms: [facility] Prescriptions Prescriptions: No Action multivitamin [Daily Multi-Vitamin] Tablet 1 tab PO QAM Xiidra 5 % dropperette 1 drp OPB BID atorvastatin 40 mg Tablet 40 mg PO PM travoprost [Travatan Z] 0.004 % Drops 1 drp OPB HS tamsulosin [Flomax] 0.4 mg Capsule 0.4 mg PO HS losartan 25 mg Tablet 25 mg PO HS allopurinol 300 mg Tablet 300 mg PO HS metformin 500 mg Tablet Extended Release 24 Hr 500 mg PO HS turmeric 400 mg Capsule 400 mg PO HS levothyroxine 50 mcg tablet 50 mcg PO DAILY finasteride 5 mg tablet 5 mg PO HS vitamin B complex Tablet 1 tab PO DAILY Referrals Referrals: Emerson Menendez MD [Primary Care Provider] -
[2021-12-27 11:51] LABS: BUN Creatinine Ratio 18.5 (10-20); Calcium 9.1 mg/dl (8.5-10.1); Creatinine Clr Calc Pharmacy 79.6 ml/min; Est GFR (African American) 80.2 ml/min; Est GFR (Non-African American) 69.2 ml/min; Potassium 4.2 mmol/L (3.5-5.1)
[2021-12-27 11:53] LABS: Troponin I High Sensitivity 5.1 pg/ml (0-20)
--- NOTE | 2021-12-27 14:19 | History & Physical Report ---
Date of Service December 27, 2021 Assessment & Plan (1) Chest pain: Plan 71 yo M with PMH of type 2 DM, GOLDY on CPAP, hypothyroidism, dyslipidemia presented to the ED Chest pain occurs with exertion and deep breathing Due to the exertional chest pain, and his significant history we need to r/o ACS Initial troponin negative and EKG showed no acute ischemic changes CXR showed no acute finding Pt had echo done recently on 10/28/21- showed aortic root is mildly enlarged 4.1 cm. The ascending aorta is mildly enlarged 4.1 cm. LV wall thickness is mildly increased. LV ejection fraction 55 to 59% No aspirin given because pt has an allergy with ASA case discussed with cardiology If patient chest pain reoccurs, will start on plavix and heparin Will trend troponin Will get a resting echo, repeat EKG in am and check Lipid panel Continue Statin for now NPO after midnight Will monitor closely in tele Diabetes type 2 Most recent hba1c 6.3- Controlled Will hold PO metformin Will repeat Hba1c in am Will add insulin sliding scale during the hospital course GOLDY Continue Cpap at night HTN BP stable Continue Losartan 25mg daily BPH Continue Proscar and flomax Hypothyroidism Will check TSH Continue Levothyroxine DVT px on Heparin subq Code status full code History of Present Illness Chief Complaint: Chest pain Primary Care Provider: Emerson Menendez MD 71 yo M with PMH of type 2 DM, GOLDY on CPAP, hypothyroidism, dyslipidemia presented to the ED with Chest pain. Pt said that for the last few days he has been having chest pain with exertion, then improves at rest. He said that chest pain also occurs with deep breathing. He said that on he was playing golf with his son when pain got worst. Pain located below his left breast area, non radiating, throbbing, vary in intensity dependent on his activities. said that he has been feeling fatigue and tired lately. He had some mild chest discomfort when I pushed on the area below his breast. Denies any fever, SOB, dizziness, nausea, diarrhea and palpitation. Currently resting comfortable in bed with at bedside watching the [employer] football game. Allergies Allergy/AdvReac Type Severity Reaction Status Date / Time aspirin Allergy Severe Facial Verified 12/27/21 11:26 swelling cat dander Allergy Intermediate Eye itching Verified 12/27/21 11:26 HAY FEVER Allergy Intermediate Sneezing Uncoded 12/27/21 11:26 Home Medications Medication Instructions Recorded Confirmed Type allopurinol 300 mg tablet 300 mg PO HS 12/20/20 12/27/21 History atorvastatin 40 mg tablet 40 mg PO PM 12/20/20 12/27/21 History losartan 25 mg tablet 25 mg PO HS 12/20/20 12/27/21 History metformin 500 mg tablet,extended 500 mg PO HS 12/20/20 12/27/21 History release 24 hr tamsulosin 0.4 mg capsule (Flomax) 0.4 mg PO HS 12/20/20 12/27/21 History travoprost 0.004 % eye drops 1 drp OPB HS 12/20/20 12/27/21 History (Travatan Z) turmeric 400 mg capsule 400 mg PO HS 12/20/20 12/27/21 History lifitegrast 5 % eye drops in a 1 drp OPB BID 12/27/20 12/27/21 History dropperette (Xiidra) multivitamin (Daily Multi-Vitamin 1 tab PO QAM 12/27/20 12/27/21 History tablet) finasteride 5 mg tablet 5 mg PO HS 12/27/21 12/27/21 History levothyroxine 50 mcg tablet 50 mcg PO DAILY 12/27/21 12/27/21 History vitamin B complex 1 tab PO DAILY 12/27/21 12/27/21 History Past Med/Surg History Medical History BPH (benign prostatic hypertrophy) CAD (coronary artery disease) Coronary calcifications noted on CT scan- evaluated by cardio- negative stress test- statin increased- started on Losartan for risk factor modification DDD (degenerative disc disease) Depression Diabetes mellitus, type 2 Dyslipidemia Gout History of COVID-19 Dx 01/2020 > resolved Sleep apnea CPAP SVT (supraventricular tachycardia) Single episode 06/2020 on stress test > converted to SR on own post stress (cardio aware) Surgical History H/O colonoscopy H/O umbilical hernia repair History of ankle surgery S/P repair of hydrocele S/P UPPP (uvulopalatopharyngoplasty) Social History Smoking Status: Former smoker Tobacco Type: Cigarettes Second Hand Exposure: No; Hx Alcohol Use: Yes Hx Substance Use: No Preferred Language: Czech Communication Ability: 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 Beliefs That Will Affect Care: None marital status: Current Living Situation: Spouse current occupational status: employed Feels Safe at Home: Yes Review of Systems Review of Systems: All systems reviewed & are unremarkable except as noted in HPI & below Physical Exam Physical Exam: General- No acute distress Head- atraumatic Eyes- PERRL, EOMI, ENT- oropharynx clear Neck- supple, no JVD Lungs- clear to auscultation Heart- regular rhythm; + murmur Abdomen- normal bowel sounds, soft, nontender Extremities- no calf tenderness Neuro- alert, oriented x 3; PERRL, EOMI; no facial palsy; no dysarthria Skin- warm & dry Results & Data Results & Data ([facility]) Vital Signs (Past 12 Hours) Vital Signs Temp Pulse Pulse Resp BP BP Pulse Ox 12/27/21 13:10 61 20 97 12/27/21 13:00 59 L 18 96 12/27/21 12:50 69 96 12/27/21 12:40 65 23 96 12/27/21 12:30 65 18 95 12/27/21 12:20 66 22 96 12/27/21 12:10 66 20 95 12/27/21 12:00 70 20 96 12/27/21 11:50 67 23 95 12/27/21 11:40 68 19 95 12/27/21 11:30 66 20 95 12/27/21 11:20 66 95 12/27/21 11:10 66 22 95 12/27/21 11:00 61 19 95 12/27/21 10:59 135/79 12/27/21 10:59 66 24 91 12/27/21 10:53 64 23 12/27/21 11:01 67 20 135/79 96 12/27/21 10:45 36.3 C L 79 20 111/70 95 O2 Del Method 12/27/21 13:10 12/27/21 13:00 12/27/21 12:50 12/27/21 12:40 12/27/21 12:30 12/27/21 12:20 12/27/21 12:10 12/27/21 12:00 12/27/21 11:50 12/27/21 11:40 12/27/21 11:30 12/27/21 11:20 12/27/21 11:10 12/27/21 11:00 12/27/21 10:59 12/27/21 10:59 12/27/21 10:53 12/27/21 11:01 Room Air 12/27/21 10:45 Room Air Diagnostic Findings Laboratory Results WBC 9.09 K/ul (4.8-10.8) 12/27/21 10:59 RBC 4.88 M/uL (4.63-6.08) 12/27/21 10:59 Hgb 15.9 g/dl (14.0-18.0) 12/27/21 10:59 Hct 44.9 % (40.1-51.0) 12/27/21 10:59 MCV 92.0 fL (80.0-100.0) 12/27/21 10:59 MCH 32.6 pg (25.0-34.0) 12/27/21 10:59 MCHC 35.4 g/dL (32.0-36.0) 12/27/21 10:59 RDW Std Deviation 46.2 fL (36.4-46.3) 12/27/21 10:59 RDW Coeff of Dk 13.6 % (11.5-14.5) 12/27/21 10:59 Plt Count 233 K/uL (130-400) 12/27/21 10:59 MPV 9.8 fL (9.4-12.4) 12/27/21 10:59 Immature Gran % (Auto) 0.3 % 12/27/21 10:59 Neut % (Auto) 63.0 % 12/27/21 10:59 Lymph % (Auto) 26.2 % 12/27/21 10:59 [place] % (Auto) 8.0 % 12/27/21 10:59 Eos % (Auto) 1.9 % 12/27/21 10:59 Baso % (Auto) 0.6 % 12/27/21 10:59 Neut # (Auto) 5.73 K/uL (1.4-6.5) 12/27/21 10:59 Lymph # (Auto) 2.38 K/uL (1.2-3.4) 12/27/21 10:59 [place] # (Auto) 0.73 K/uL (0.24-0.82) 12/27/21 10:59 Eos # (Auto) 0.17 K/uL (0-0.50) 12/27/21 10:59 Baso # (Auto) 0.05 K/uL (0-0.2) 12/27/21 10:59 Immature Gran # (Auto) 0.03 K/uL (0.00-0.02) H 12/27/21 10:59 PT 10.8 Seconds (9.0-12.0) 12/27/21 10:59 INR 1.0 (0.9-1.1) 12/27/21 10:59 APTT 25.9 Seconds (21.0-31.0) 12/27/21 10:59 PTT Ratio 0.9 12/27/21 10:59 D-Dimer 330 ug/L FEU (0-500) 12/27/21 10:59 Sodium 138 mmol/L (136-145) 12/27/21 10:59 Potassium 4.2 mmol/L (3.5-5.1) 12/27/21 10:59 Chloride 105 mmol/L (98-107) 12/27/21 10:59 Carbon Dioxide 25 mmol/L (21-32) 12/27/21 10:59 Anion Gap 8 (3-11) 12/27/21 10:59 BUN 20 mg/dl (6-23) 12/27/21 10:59 Creatinine 1.08 mg/dl (0.6-1.4) 12/27/21 10:59 Est Cr Clr Drug Dosing 79.6 ml/min 12/27/21 10:59 Est GFR ( Amer) 80.2 ml/min 12/27/21 10:59 Est GFR (Non-Af Amer) 69.2 ml/min 12/27/21 10:59 BUN/Creatinine Ratio 18.5 (10-20) 12/27/21 10:59 Glucose 143 mg/dl (70-99(Fasting)) H 12/27/21 10:59 Calcium 9.1 mg/dl (8.5-10.1) 12/27/21 10:59 Troponin I High Sens 5.1 pg/ml (0-20) 12/27/21 10:59 Lipase 42 U/L (11-82) 12/27/21 10:59 SARS-CoV-2, RNA, NAAT NEGATIVE (NEGATIVE) 12/27/21 12:33 Impressions Chest X-Ray 12/27/21 10:51 XR chest 1V portable HISTORY: 71 years-old Male Chest Pain acute chest pain COMPARISON: Chest radiograph 09/11/2015 TECHNIQUE: Portable AP view of the chest FINDINGS: Cardiac mediastinal and hilar silhouettes are unchanged. No pneumothorax, pleural effusion, airspace consolidation or overt pulmonary edema. Mild subsegmental bibasilar atelectasis. Degenerative changes of the shoulders and spine. Mild mid thoracic dextroscoliosis. IMPRESSION: No acute process. ACT 112: Negative or not required by law. The above report was generated using voice recognition software. It may contain grammatical, syntax or spelling errors. Electronically signed by: Aubrey Tucker M.D. 12/27/2021 11:12 AM
[2021-12-27] MEDS: HEPARIN SOD 5,000 UNIT/0.5 ML VIAL SQ SCH ×2 (18:24→22:02)
[2021-12-27] MEDS ORDERED: GLUCOSE 10 TAB/TUBE PO PRN (19:35)
[2021-12-27] MEDS ORDERED: GLUCAGON FOR INJ 1 MG VIAL SQ PRN (19:35)
[2021-12-27] MEDS ORDERED: DEXTROSE 50% 50 ML SYRINGE IV PRN (19:35)
[2021-12-27] MEDS ORDERED: GLUCOSE 40% GEL 15 GM TUBE PO PRN (19:35)
[2021-12-27] MEDS ORDERED: CARBOHYDRATES FOR HYPOGLYCEMIA PO PRN (19:35)
[2021-12-27] MEDS: INSULIN ASPART PER UNIT SC SCH (19:56)
[2021-12-27] MEDS ORDERED: ATORVASTATIN 40 MG TAB PO SCH (21:00)
[2021-12-27] MEDS ORDERED: TRAVOPROST Z 0.004% OPH SOLN 2.5 ML BTL OPB SCH (21:00)
[2021-12-27] MEDS ORDERED: LOSARTAN POTASSIUM 25 MG TAB PO SCH (21:00)
[2021-12-27] MEDS ORDERED: NON-FORMULARY MEDICATION (Turmeric 400 mg Capsule) PO SCH (21:00)
[2021-12-27] MEDS ORDERED: TAMSULOSIN HCL 0.4 MG CAP PO SCH (21:00)
[2021-12-27] MEDS ORDERED: allopurinoL 300 MG TAB PO SCH (21:00)
[2021-12-27] MEDS ORDERED: FINASTERIDE 5 MG TAB PO SCH (21:00)
[2021-12-27] MEDS ORDERED: FEXOFENADINE 60 MG TAB PO SCH (21:00)
--- NOTE | 2021-12-27 23:16 | Electrocardiogram Report ---
Test Reason : Blood Pressure : / mmHG Vent. Rate : 061 BPM Atrial Rate : 061 BPM P-R Int : 188 ms QRS Dur : 086 ms QT Int : 404 ms P-R-T Axes : 039 015 017 degrees QTc Int : 406 ms Normal sinus rhythm Normal ECG When compared with ECG of 12-SEP-2015 11:53, No significant change was found Confirmed by Clayton Hercules ([id number]) on 12/27/2021 11:16:24 PM Referred By: REFERRED SELF Confirmed By:Clayton Hercules
[2021-12-28] MEDS: HEPARIN SOD 5,000 UNIT/0.5 ML VIAL SQ SCH ×2 (06:08→15:07)
[2021-12-28 06:11] LABS: Hematocrit (blood only) 41.4 % (40.1-51.0); Hemoglobin 14.7 g/dl (14.0-18.0); Mean Corpuscular Hemoglobin 32.2 pg (25.0-34.0); Mean Corpuscular Hgb Conc 35.5 g/dL (32.0-36.0); Mean Corpuscular Volume 90.6 fL (80.0-100.0); Mean Platelet Volume 9.9 fL (9.4-12.4); Platelet Count 217 K/uL (130-400); RDW Coefficient of Variation 13.5 % (11.5-14.5); RDW Standard Deviation 44.5 fL (36.4-46.3); Red Blood Count 4.57 M/uL (4.63-6.08); White Blood Count 8.05 K/ul (4.8-10.8)
[2021-12-28] MEDS ORDERED: LEVOTHYROXINE SODIUM 50 MCG TABLET PO SCH (06:30)
[2021-12-28 07:03] LABS: BUN Creatinine Ratio 19.8 (10-20); Calcium 8.6 mg/dl (8.5-10.1); Chol HDL Ratio 3.2 (0-5); Creatinine Clr Calc Pharmacy 85.8 ml/min; Est GFR (African American) 86.9 ml/min
[2021-12-28] MEDS: INSULIN ASPART PER UNIT SC SCH ×3 (08:59→17:54)
[2021-12-28] MEDS ORDERED: MULTIVITAMIN TAB PO SCH (09:00)
[2021-12-28] MEDS ORDERED: NON-FORMULARY PATIENT'S OWN MED OP SCH (09:00)
[2021-12-28] MEDS ORDERED: VITAMIN B COMPLEX TAB PO SCH (09:00)
--- NOTE | 2021-12-28 12:22 | Cardiology Consultation ---
Date of Consultation December 28, 2021 Assessment & Plan (1) Chest pain: Patient is a 71-year-old male with multiple cardiovascular risk factors including age, gender, hypertension, known coronary calcifications, diabetes mellitus, dyslipidemia who experienced symptoms of atypical chest discomfort worse with maneuver or palpitations. Symptoms nonsustained and not specifically related to physical exertion. No acute hemodynamic issues. No dizziness or lightheadedness no referral of pain. Cardiac evaluation to date includes preserved LV systolic function on echocardiogram, normal troponins, normal EKG Impression: Atypical chest pain and patient with multiple cardiovascular risk factors. No signs of acute coronary syndrome Discussed management in detail with the patient. Would recommend stress testing to evaluate symptoms. Patient declines inpatient follow and wishes outpatient testing all initial parameters suggest good risk for doing so. Would discharge on current outpatient medications with planned outpatient stress testing. Caution patient to immediately report worsening symptoms or persistent complaints History of Present Illness Reason for Consultation: Left-sided chest pain Requesting Physician: Dr. Lucia Attending Physician: Yeni Lucia MD History of Present Illness Patient is a 71-year-old male with ongoing issues which include 1. Obesity 2. Hypertension 3. Hyperlipidemia 4. Type 2 diabetes mellitus 5. Coronary calcifications without documented obstructive disease by prior CT scan prior negative stress test 6. Mildly dilated ascending aorta 7. Obstructive sleep apnea on CPAP Patient presents this admission noting symptoms of jabbing, aching left-sided chest pain at apex and axillary line. Symptoms initially noted while golfing with maneuvers and swinging. Tender to touch at times. Patient and are concerned regarding persistence and patient presented to the ER for further evaluation. No exertional dyspnea beyond baseline. No diaphoresis. No other signs or symptoms of referral of this chest discomfort. Initial EKG and serial cardiac enzymes normal He denies recent fevers chills or infections notes no bleeding difficulties. Blood pressure per patient's been well controlled No dizziness or lightheadedness no syncope. Wears CPAP faithfully Allergies Allergy/AdvReac Type Severity Reaction Status Date / Time aspirin Allergy Severe Facial Verified 12/27/21 11:26 swelling cat dander Allergy Intermediate Eye itching Verified 12/27/21 11:26 HAY FEVER Allergy Intermediate Sneezing Uncoded 12/27/21 11:26 Home Medications Medication Instructions Recorded Confirmed Type allopurinol 300 mg tablet 300 mg PO HS 12/20/20 12/27/21 History atorvastatin 40 mg tablet 40 mg PO PM 12/20/20 12/27/21 History losartan 25 mg tablet 25 mg PO HS 12/20/20 12/27/21 History metformin 500 mg tablet,extended 500 mg PO HS 12/20/20 12/27/21 History release 24 hr tamsulosin 0.4 mg capsule (Flomax) 0.4 mg PO HS 12/20/20 12/27/21 History travoprost 0.004 % eye drops 1 drp OPB HS 12/20/20 12/27/21 History (Travatan Z) turmeric 400 mg capsule 400 mg PO HS 12/20/20 12/27/21 History lifitegrast 5 % eye drops in a 1 drp OPB BID 12/27/20 12/27/21 History dropperette (Xiidra) multivitamin (Daily Multi-Vitamin 1 tab PO QAM 12/27/20 12/27/21 History tablet) finasteride 5 mg tablet 5 mg PO HS 12/27/21 12/27/21 History levothyroxine 50 mcg tablet 50 mcg PO DAILY 12/27/21 12/27/21 History vitamin B complex 1 tab PO DAILY 12/27/21 12/27/21 History Patient History Medical History BPH (benign prostatic hypertrophy) CAD (coronary artery disease) Coronary calcifications noted on CT scan- evaluated by cardio- negative stress test- statin increased- started on Losartan for risk factor modification DDD (degenerative disc disease) Depression Diabetes mellitus, type 2 Dyslipidemia Gout History of COVID-19 Dx 01/2020 > resolved Sleep apnea CPAP SVT (supraventricular tachycardia) Single episode 06/2020 on stress test > converted to SR on own post stress (cardio aware) Surgical History H/O colonoscopy H/O umbilical hernia repair History of ankle surgery S/P repair of hydrocele S/P UPPP (uvulopalatopharyngoplasty) Social History Smoking Status: Former smoker Tobacco Type: Cigarettes Smoking End Date: 1986; Second Hand Exposure: No; Do You Dip or Chew Tobacco: No; Tobacco Cessation Education Requested by Patient: No Hx Alcohol Use: Yes Alcohol type: beer, wine and hard liquor Hx Substance Use: No Preferred Language: Kosovan Communication Ability: Effective Director Of Recruitment And Admissions Required: No Beliefs That Will Affect Care: None marital status: Current Living Situation: Spouse current occupational status: employed Other Information That Helps Us Care for You: No Feels Safe at Home: Yes Safety Concerns: Feels Safe At This Time Assistive Devices: Glasses Review of Systems Review of Systems: All systems reviewed & are unremarkable except as noted in HPI & below Results & Data ([facility]) Vital Signs (Past 12 Hours) Vital Signs Temp Pulse Pulse Resp BP Pulse Ox 12/28/21 09:00 56 L 12/28/21 06:58 36.4 C L 67 16 125/79 96 12/28/21 03:07 36.4 C L 65 16 137/69 94 Diagnostic Findings Echocardiogram 10/28/2021 [facility] The qualitative LV ejection fraction is 55-59% (normal). The LV wall thickness is mildly increased (concentric). Mild aortic valve regurgitation is present. Mild mitral regurgitation is present. The mitral regurgitation jet is eccentric. The mitral regurgitation jet is also anteriorly directed. The aortic root is mildly enlarged, 4.0 cm. The ascending aorta is mildly enlarged, 4.1 cm. Compared to prior study of 06/27/2020, there is no significant change. (1) Chest pain Chest pain type: unspecified Qualified Code(s): R07.9 - Chest pain, unspecified
--- NOTE | 2021-12-28 14:13 | Discharge Summary ---
Discharge Summary Date of Service December 28, 2021 Notes For Next Care Provider Patient was admitted for atypical chest discomfort, cardiology evaluated, patient declined inpatient stress test, patient to follow-up with cardiology and get cardiac stress test done as soon as possible as an outpatient. Patient to follow-up with PCP in a week time. Medication Changes From Visit None. Admission HPI Per Admitting Provider 71 yo M with PMH of type 2 DM, GOLDY on CPAP, hypothyroidism, dyslipidemia presented to the ED with Chest pain. Pt said that for the last few days he has been having chest pain with exertion, then improves at rest. He said that chest pain also occurs with deep breathing. He said that on he was playing golf with his son when pain got worst. Pain located below his left breast area, non radiating, throbbing, vary in intensity dependent on his activities. said that he has been feeling fatigue and tired lately. He had some mild chest discomfort when I pushed on the area below his breast. Denies any fever, SOB, dizziness, nausea, diarrhea and palpitation. Currently resting comfortable in bed with at bedside watching the [employer] football game. Admission Exam Per Admitting Provider General- No acute distress Head- atraumatic Eyes- PERRL, EOMI, ENT- oropharynx clear Neck- supple, no JVD Lungs- clear to auscultation Heart- regular rhythm; + murmur Abdomen- normal bowel sounds, soft, nontender Extremities- no calf tenderness Neuro- alert, oriented x 3; PERRL, EOMI; no facial palsy; no dysarthria Skin- warm & dry Principal Dx & Hospital Course #1 = Principal Diagnosis (1) Chest pain: Plan 71-year-old gentleman with PMH of T2DM, GOLDY on CPAP, HLD, HTN, hypothyroidism, CAD presented to our ED 12/27 with chest pain with exertion and deep breathing, patient was reported to have been fatigued and tired lately by his . Admitting EKG, troponin trend WNL. Echo done and reviewed, grade 1 diastolic dy sfunction with EF of 60 to 65%. Lipid profile with LDL of 43. CXR with no acute findings. Patient does have a history of allergy to aspirin. Cardiology evaluated, patient declined inpatient stress test, patient to follow-up with cardiology for outpatient cardiac stress testing. Patient to continue his outpatient medication as prior upon discharge. Patient to continue his CPAP at night. TSH done in the hospital was normal Full code Patient being discharged home with following instructions at the point of discharge: Follow-up with your primary care physician in a week time. Follow-up with cardiology as an outpatient for your cardiac stress test. Advise to immediately report to emergency if worsening chest pain or persistent complaints of chest pain. Take your medications as prescribed. Discharge Exam GENERAL: Alert and oriented x3. NAD, on RA. Class III obese HEENT: No pallor, no icterus. Pupils equal, round and reactive to light. Oral mucosa moist. NECK: No JVD, no neck masses. HEART: S1 and S2 heard. Regular rate and rhythm. + murmur, no gallop. RESPIRATORY SYSTEM: Normal AP diameter. No accessory muscle use. No wheezing, no crackles. ABDOMEN: Soft, bowel sounds present, nontender, no distention. CENTRAL NERVOUS SYSTEM: No facial droop. Speech is clear. Obeys simple commands. Moves extremities. EXTREMITIES: No edema, no erythema seen. Updated Medication List Medication Instructions Recorded Confirmed Type allopurinol 300 mg tablet 300 mg PO HS 12/20/20 12/27/21 History atorvastatin 40 mg tablet 40 mg PO PM 12/20/20 12/27/21 History losartan 25 mg tablet 25 mg PO HS 12/20/20 12/27/21 History metformin 500 mg tablet,extended 500 mg PO HS 12/20/20 12/27/21 History release 24 hr tamsulosin 0.4 mg capsule (Flomax) 0.4 mg PO HS 12/20/20 12/27/21 History travoprost 0.004 % eye drops 1 drp OPB HS 12/20/20 12/27/21 History (Travatan Z) turmeric 400 mg capsule 400 mg PO HS 12/20/20 12/27/21 History lifitegrast 5 % eye drops in a 1 drp OPB BID 12/27/20 12/27/21 History dropperette (Xiidra) multivitamin (Daily Multi-Vitamin 1 tab PO QAM 12/27/20 12/27/21 History tablet) finasteride 5 mg tablet 5 mg PO HS 12/27/21 12/27/21 History levothyroxine 50 mcg tablet 50 mcg PO DAILY 12/27/21 12/27/21 History vitamin B complex 1 tab PO DAILY 12/27/21 12/27/21 History Hospital Stay Data Consultations 12/27/21 12:13 ED Decision to Admit Stat 12/27/21 12:38 Consult Cardiology Routine Pending Results Patient Have Any Pending Studies at Discharge: No Discharge Instructions Given to Patient (Per Discharging Provider) Follow-up with your primary care physician in a week time. Follow-up with cardiology as an outpatient for your cardiac stress test. Advise to immediately report to emergency if worsening chest pain or persistent complaints of chest pain. Take your medications as prescribed. Total Time Total Time Spent Total Time Spent (In Minutes): 40
[2021-12-29 08:08] LABS: Estimated Average Glucose 134 mg/dl; Hemoglobin A1C 6.3 % (4.5-5.6)
== END 2021-12-28 18:31 | disposition home or self-care (01) ==
LOC: ED 10:39 → 2S 10:39 → SUATTDRO 12:38 → 2S 16:17